=== PATIENT | female | born 1940 | race Caucasian/White ===

== ENCOUNTER 2018-01-09 10:10 | Inpatient (IN) | payer OTHER, BC ==
[~2018-01-09] VITALS: Ht 170.2 cm; Wt 70.8 kg
[2018-01-09 10:15] VITALS: BP 104/45
[2018-01-09] MEDS ORDERED: ACET-2619 PO (11:30)
[2018-01-09] MEDS ORDERED: [UNRECOGNIZED DRUG - CODE] RC (11:49)
[2018-01-09] MEDS ORDERED: LISI30TA6 PO (11:49)
[2018-01-09] MEDS ORDERED: FERR-252 PO (11:49)
[2018-01-09] MEDS ORDERED: VITB12I IM (11:49)
[2018-01-09] MEDS ORDERED: ASPI81CT89 PO (11:49)
[2018-01-09] MEDS ORDERED: GLIP5TAB4 PO (11:49)
[2018-01-09] MEDS ORDERED: VITA1TAB44 PO (11:49)
[2018-01-09] MEDS ORDERED: PANT40EC PO (11:49)
[2018-01-09] MEDS ORDERED: FENO145T PO (11:49)
[2018-01-09] MEDS ORDERED: VITD1000 PO (11:49)
[2018-01-09] MEDS ORDERED: LIP80 PO (11:49)
[2018-01-09] MEDS ORDERED: HYDR-5122 PO (11:49)
[2018-01-09] MEDS ORDERED: CLON0.1T42 PO (11:49)
[2018-01-09] MEDS ORDERED: DOCU250S72 PO (11:49)
[2018-01-09] MEDS ORDERED: CARV25TA PO (11:49)
[2018-01-09] MEDS ORDERED: FLEPED RC (11:49)
[2018-01-09] MEDS ORDERED: MAGN400S60 PO (11:49)
[2018-01-09 12:02] LABS: BASOPHILS % (AUTO) 0.3 % (0.0-2.0); EOSINOPHILS # (AUTO) 0.2 K/uL (0-0.4); HEMATOCRIT 21.3 % (36-48); LYMPHOCYTES # (AUTO) 0.6 K/uL (2.5-16.5); LYMPHOCYTES % (AUTO) 5.9 % (20.5-51.1); MEAN CORPUSCULAR HEMOGLOBIN 31 pg (27-31); MEAN CORPUSCULAR HGB CONC 32 g/dL (33-37); MEAN CORPUSCULAR VOLUME 97.7 fL (80-94); MONOCYTES # (AUTO) 0.7 K/uL (0.8-1.0); MONOCYTES % (AUTO) 6.8 % (1.7-9.3); NEUTROPHILS # (AUTO) 8.5 K/uL (1.8-7.7); PLATELET COUNT (AUTO) 354 K/uL (140-450); RED BLOOD CELL COUNT(AUTO) 2.18 MIL/uL (4.20-5.40); RED CELL DISTRIBUTION WIDTH 14.7 % (11.6-13.7)
[2018-01-09 12:21] LABS: ALBUMIN 1.9 g/dL (3.4-5.0); ANION GAP 16.4 (8-16); ASPARTATE AMINOTRANSFERASE 21 U/L (15-37); CARBON DIOXIDE 19.7 mmol/L (21-32); CHLORIDE 109 mmol/L (98-107); CREATININE 2.3 mg/dL (0.6-1.3); GLUCOSE 197 mg/dL (74-106); POTASSIUM 5.1 mmol/L (3.5-5.1); SODIUM SERUM 140 mmol/L (136-145); TOTAL BILIRUBIN 0.2 mg/dL (0.0-1.0)
[2018-01-09 12:27] LABS: HEMOGLOBIN 6.8 g/dL (12.0-16.0)
[2018-01-09 12:29] LABS: UREA NITROGEN, BLOOD 85 mg/dL (7-18)
[2018-01-09 12:34] LABS: PROTHROMBIN TIME 10.7 secs (10.8-13.4)
[2018-01-09] MEDS: NACL 0.9% 1,000 ML IV SCH (13:07)
[2018-01-09] MEDS ORDERED: ACETAMINOPHEN 325 MG TAB PO PRN (13:10)
[2018-01-09] MEDS ORDERED: ONDANSETRON 4 MG/2 ML VIAL IM/IVP PRN (13:10)
[2018-01-09] MEDS ORDERED: DOCUSATE SODIUM 100 MG GELCAP PO PRN (13:10)
[2018-01-09] MEDS ORDERED: HYDROcodone/APAP 7.5/325 MG 1 TAB PO PRN (13:10)
[2018-01-09 13:40] LABS: APPEARANCE,URINE SLIGHTLY HAZY (CLEAR); BILIRUBIN,URINE NEGATIVE (NEGATIVE); BLOOD, URINE NEGATIVE (NEGATIVE); COLOR,URINE YELLOW (YELLOW); LEUKOCYTE ESTERASE ,URINE SMALL (NEGATIVE); NITRITE, URINE NEGATIVE (NEGATIVE); UGLUCOSE NEGATIVE (NEGATIVE)
[2018-01-09 13:44] LABS: RBC,URINE 0-5 (RARE) /HPF (0-5); WBC,URINE 16-25 (MOD) /HPF (0-5)
[2018-01-09 13:45] LABS: URINE AMORPHOUS URATE 1+ /HPF (None Seen)
[2018-01-09 13:52] LABS: CHOL/HDL RATIO 2.6 (1-4.5); MAGNESIUM 1.7 mg/dL (1.8-2.4); PHOSPHORUS 5.5 mg/dL (2.5-4.9); THYROID STIMULATING HORMONE 0.13 uIU/mL (0.34-3.74)
[2018-01-09 13:55] LABS: BARBITURATE, URINE NEG. ng/ml (NEG <=200); BENZODIAZEPINE, URINE POS. ng/mL (NEG <=200); CANNABINOID, URINE NEG. ng/mL (NEG <=50); COCAINE, URINE NEG. ng/mL (NEG <=300); OPIATE, URINE NEG. ng/mL (NEG <=2000); PHENCYCLIDINE SCREEN,URINE NEG. ng/mL (NEG <=25)
[2018-01-09 14:10] VITALS: BP 126/39
[2018-01-09] MEDS ORDERED: INSULIN LISPRO SLIDING SCALE 100 UNITS/ML VIAL SUBQ PRN (15:00)
[2018-01-09] MEDS ORDERED: SODIUM PHOSPHATE 118 ML ENEM RC PRN (15:00)
[2018-01-09] MEDS ORDERED: cloNIDine 0.1 MG TAB PO PRN (15:00)
[2018-01-09] MEDS ORDERED: BISACODYL 5 MG RC SCH (15:00)
[2018-01-09] MEDS ORDERED: DEXTROSE 50% 50 ML SYR IVP PRN (15:00)
[2018-01-09] MEDS ORDERED: MAGNESIUM HYDROXIDE 2400 MG/30 ML UDC PO PRN (15:00)
[2018-01-09] MEDS ORDERED: BISACODYL 10 MG SUPP RC PRN (15:20)
[2018-01-09] MEDS ORDERED: BISACODYL 5 MG TABEC PO PRN (15:20)
[2018-01-09 16:00] VITALS: BP 116/38
[2018-01-09] MEDS ORDERED: FUROSEMIDE 20 MG TAB PO SCH (16:00)
[2018-01-09] MEDS ORDERED: ACETAMINOPHEN 325 MG TAB PO SCH (16:00)
[2018-01-09] MEDS: BLOOD GLUCOSE MONITORING 1 DEV DEV FS SCH ×2 (16:55→21:42)
[2018-01-09 19:11] LABS: BASOPHILS % (AUTO) 0.5 % (0.0-2.0); EOSINOPHILS # (AUTO) 0.2 K/uL (0-0.4); EOSINOPHILS % (AUTO) 2.8 % (0.0-4.0); HEMATOCRIT 22.5 % (36-48); HEMOGLOBIN 7.3 g/dL (12.0-16.0); LYMPHOCYTES # (AUTO) 0.7 K/uL (2.5-16.5); LYMPHOCYTES % (AUTO) 8.3 % (20.5-51.1); MEAN CORPUSCULAR HEMOGLOBIN 31 pg (27-31); MEAN CORPUSCULAR HGB CONC 33 g/dL (33-37); MEAN CORPUSCULAR VOLUME 93.9 fL (80-94); MONOCYTES # (AUTO) 0.7 K/uL (0.8-1.0); MONOCYTES % (AUTO) 8.3 % (1.7-9.3); NEUTROPHILS # (AUTO) 6.7 K/uL (1.8-7.7); NEUTROPHILS % (AUTO) 80.1 % (42.2-75.2); PLATELET COUNT (AUTO) 298 K/uL (140-450); RED CELL DISTRIBUTION WIDTH 16.1 % (11.6-13.7); WHITE BLOOD COUNT (AUTO) 8.4 K/uL (4.8-10.8)
[2018-01-09 20:00] VITALS: BP 137/50
[2018-01-09] MEDS: ATORVASTATIN 80 MG TAB PO SCH (21:46)
[2018-01-09] MEDS: CARVEDILOL 12.5 MG TAB PO SCH (21:47)
[2018-01-10] VITALS (7 sets, daily range): BP systolic 123–164; BP diastolic 40–67
[2018-01-10] MEDS: PANTOPRAZOLE 40 MG TABEC PO SCH (05:59)
[2018-01-10] MEDS: NACL 0.9% 1,000 ML IV SCH ×3 (05:59→20:17)
[2018-01-10] MEDS: BLOOD GLUCOSE MONITORING 1 DEV DEV FS SCH ×4 (06:03→20:17)
[2018-01-10 06:06] LABS: BASOPHILS % (AUTO) 0.4 % (0.0-2.0); EOSINOPHILS # (AUTO) 0.2 K/uL (0-0.4); EOSINOPHILS % (AUTO) 2.8 % (0.0-4.0); HEMATOCRIT 22.8 % (36-48); HEMOGLOBIN 7.5 g/dL (12.0-16.0); LYMPHOCYTES # (AUTO) 0.5 K/uL (2.5-16.5); LYMPHOCYTES % (AUTO) 6.2 % (20.5-51.1); MEAN CORPUSCULAR HEMOGLOBIN 31 pg (27-31); MEAN CORPUSCULAR HGB CONC 33 g/dL (33-37); MEAN CORPUSCULAR VOLUME 93.9 fL (80-94); MONOCYTES # (AUTO) 0.6 K/uL (0.8-1.0); MONOCYTES % (AUTO) 6.8 % (1.7-9.3); NEUTROPHILS # (AUTO) 6.9 K/uL (1.8-7.7); NEUTROPHILS % (AUTO) 83.8 % (42.2-75.2); PLATELET COUNT (AUTO) 296 K/uL (140-450); RED BLOOD CELL COUNT(AUTO) 2.43 MIL/uL (4.20-5.40); RED CELL DISTRIBUTION WIDTH 16.1 % (11.6-13.7); WHITE BLOOD COUNT (AUTO) 8.3 K/uL (4.8-10.8)
[2018-01-10 06:29] LABS: MAGNESIUM 1.5 mg/dL (1.8-2.4); PHOSPHORUS 4.9 mg/dL (2.5-4.9)
[2018-01-10 06:31] LABS: CHOL/HDL RATIO 2.5 (1-4.5)
[2018-01-10] MEDS ORDERED: INFLUENZA VIRUS VACCINE QUAD 0.5 ML SYR IMVAC PRN (06:50)
[2018-01-10] MEDS ORDERED: PNEUMOCOCCAL VACCINE 23 MCG/0.5 ML VIAL IMVAC SCH (06:50)
[2018-01-10] MEDS ORDERED: PANTOPRAZOLE 40 MG TABEC PO SCH (09:00)
[2018-01-10] MEDS: CHOLECALCIFEROL 1,000 IU TAB PO SCH (09:00)
[2018-01-10] MEDS ORDERED: FENOFIBRATE 134 MG PO SCH (09:00)
[2018-01-10] MEDS: ASPIRIN 81 MG TAB.CHEW PO SCH (09:24)
[2018-01-10] MEDS: glipiZIDE 5 MG TAB PO SCH (09:25)
[2018-01-10] MEDS: VIT-B COMP/VIT-C/FOLIC ACID 1 TAB PO SCH (09:25)
[2018-01-10] MEDS: DOCUSATE SODIUM 250 MG GELCAP PO SCH (09:26)
[2018-01-10] MEDS: CARVEDILOL 12.5 MG TAB PO SCH ×2 (09:26→20:27)
[2018-01-10] MEDS: FERROUS SULFATE 325 MG TABEC PO SCH (09:28)
[2018-01-10] MEDS: FENOFIBRATE 48 MG TAB PO SCH (09:29)
[2018-01-10] MEDS: LACTOBACILLUS RHAMNOSUS GG 1 EACH CAP PO SCH (09:32)
[2018-01-10] MEDS ORDERED: MAG SULF 2000 MG/WATER PREMIX 50 ML IV SCH (11:00)
[2018-01-10 11:19] LABS: ANION GAP 15.3 (8-16); CARBON DIOXIDE 19.5 mmol/L (21-32); CHLORIDE 113 mmol/L (98-107); CREATININE 1.9 mg/dL (0.6-1.3); GLUCOSE 117 mg/dL (74-106); POTASSIUM 4.8 mmol/L (3.5-5.1); SODIUM SERUM 143 mmol/L (136-145)
[2018-01-10 11:23] LABS: UREA NITROGEN, BLOOD 73 mg/dL (7-18)
[2018-01-10] MEDS: ATORVASTATIN 80 MG TAB PO SCH (20:27)
[2018-01-11 03:50] VITALS: BP 147/65
[2018-01-11] MEDS: NACL 0.9% 1,000 ML IV SCH ×2 (05:07→06:59)
[2018-01-11] MEDS: PANTOPRAZOLE 40 MG TABEC PO SCH (05:46)
[2018-01-11] MEDS: BLOOD GLUCOSE MONITORING 1 DEV DEV FS SCH ×4 (06:07→20:05)
[2018-01-11 06:32] LABS: BASOPHILS % (AUTO) 0.3 % (0.0-2.0); EOSINOPHILS # (AUTO) 0.3 K/uL (0-0.4); HEMATOCRIT 22.8 % (36-48); HEMOGLOBIN 7.4 g/dL (12.0-16.0); LYMPHOCYTES # (AUTO) 0.7 K/uL (2.5-16.5); MEAN CORPUSCULAR HEMOGLOBIN 31 pg (27-31); MEAN CORPUSCULAR HGB CONC 33 g/dL (33-37); MEAN CORPUSCULAR VOLUME 93.7 fL (80-94); MONOCYTES # (AUTO) 0.6 K/uL (0.8-1.0); MONOCYTES % (AUTO) 7.5 % (1.7-9.3); NEUTROPHILS # (AUTO) 6.9 K/uL (1.8-7.7); NEUTROPHILS % (AUTO) 81.2 % (42.2-75.2); PLATELET COUNT (AUTO) 312 K/uL (140-450); RED BLOOD CELL COUNT(AUTO) 2.43 MIL/uL (4.20-5.40); RED CELL DISTRIBUTION WIDTH 15.6 % (11.6-13.7); WHITE BLOOD COUNT (AUTO) 8.5 K/uL (4.8-10.8)
[2018-01-11 06:51] LABS: AMYLASE 96 U/L (25-115); ANION GAP 15.3 (8-16); CARBON DIOXIDE 19.5 mmol/L (21-32); CHLORIDE 113 mmol/L (98-107); CREATININE 1.7 mg/dL (0.6-1.3); GLUCOSE 88 mg/dL (74-106); LIPASE 464 U/L (73-393); POTASSIUM 4.8 mmol/L (3.5-5.1); SODIUM SERUM 143 mmol/L (136-145); UREA NITROGEN, BLOOD 51 mg/dL (7-18)
[2018-01-11 06:56] LABS: MAGNESIUM 2.1 mg/dL (1.8-2.4); PHOSPHORUS 4.1 mg/dL (2.5-4.9)
[2018-01-11 08:00] VITALS: BP 144/52
[2018-01-11] MEDS: ASPIRIN 81 MG TAB.CHEW PO SCH (09:00)
[2018-01-11] MEDS: DOCUSATE SODIUM 250 MG GELCAP PO SCH (09:00)
[2018-01-11] MEDS: VIT-B COMP/VIT-C/FOLIC ACID 1 TAB PO SCH (09:00)
[2018-01-11] MEDS: CHOLECALCIFEROL 1,000 IU TAB PO SCH (09:00)
[2018-01-11] MEDS: FERROUS SULFATE 325 MG TABEC PO SCH (09:00)
[2018-01-11] MEDS: LISINOPRIL 20 MG TAB PO SCH (10:06)
[2018-01-11] MEDS: CARVEDILOL 12.5 MG TAB PO SCH ×2 (10:06→20:08)
[2018-01-11] MEDS: LACTOBACILLUS RHAMNOSUS GG 1 EACH CAP PO SCH (10:06)
[2018-01-11] MEDS: glipiZIDE 5 MG TAB PO SCH (10:07)
[2018-01-11] MEDS: FENOFIBRATE 48 MG TAB PO SCH (10:07)
[2018-01-11 12:00] VITALS: BP 128/51
[2018-01-11 12:03] LABS: FERRITIN 581 ng/mL (15 - 150)
[2018-01-11 12:03] LABS: T4 (THYROXINE) 6.4 ug/dL (4.5 - 12.0)
[2018-01-11 12:04] LABS: TRANSFERRIN 157 mg/dL (200 - 370)
[2018-01-11 16:00] VITALS: BP 133/55
[2018-01-11 20:00] VITALS: BP 165/66
[2018-01-11] MEDS: ATORVASTATIN 80 MG TAB PO SCH (20:08)
[2018-01-11] MEDS ORDERED: ZOLPIDEM 5 MG TAB PO SCH (22:45)
[2018-01-12] VITALS: BP 136/54
[2018-01-12 04:00] VITALS: BP 147/50
[2018-01-12] MEDS: NACL 0.9% 1,000 ML IV SCH (04:03)
[2018-01-12] MEDS: BLOOD GLUCOSE MONITORING 1 DEV DEV FS SCH ×2 (06:48→12:22)
[2018-01-12] MEDS: PANTOPRAZOLE 40 MG TABEC PO SCH (06:52)
[2018-01-12 07:34] LABS: ANION GAP 13.6 (8-16); CARBON DIOXIDE 20.8 mmol/L (21-32); CHLORIDE 114 mmol/L (98-107); CREATININE 1.5 mg/dL (0.6-1.3); GLUCOSE 83 mg/dL (74-106); POTASSIUM 4.4 mmol/L (3.5-5.1); SODIUM SERUM 144 mmol/L (136-145); UREA NITROGEN, BLOOD 36 mg/dL (7-18)
[2018-01-12 07:38] LABS: BASOPHILS % (AUTO) 0.5 % (0.0-2.0); EOSINOPHILS # (AUTO) 0.3 K/uL (0-0.4); EOSINOPHILS % (AUTO) 4.2 % (0.0-4.0); HEMATOCRIT 23.3 % (36-48); HEMOGLOBIN 7.4 g/dL (12.0-16.0); LYMPHOCYTES # (AUTO) 0.6 K/uL (2.5-16.5); LYMPHOCYTES % (AUTO) 9.7 % (20.5-51.1); MEAN CORPUSCULAR HEMOGLOBIN 31 pg (27-31); MEAN CORPUSCULAR HGB CONC 32 g/dL (33-37); MEAN CORPUSCULAR VOLUME 95.7 fL (80-94); MONOCYTES # (AUTO) 0.4 K/uL (0.8-1.0); MONOCYTES % (AUTO) 6.1 % (1.7-9.3); NEUTROPHILS # (AUTO) 5.2 K/uL (1.8-7.7); NEUTROPHILS % (AUTO) 79.5 % (42.2-75.2); PLATELET COUNT (AUTO) 283 K/uL (140-450); RED BLOOD CELL COUNT(AUTO) 2.44 MIL/uL (4.20-5.40); RED CELL DISTRIBUTION WIDTH 15.4 % (11.6-13.7); WHITE BLOOD COUNT (AUTO) 6.6 K/uL (4.8-10.8)
[2018-01-12 07:42] LABS: MAGNESIUM 1.8 mg/dL (1.8-2.4); PHOSPHORUS 2.8 mg/dL (2.5-4.9)
[2018-01-12 08:00] VITALS: BP 156/67
[2018-01-12] MEDS: LACTOBACILLUS RHAMNOSUS GG 1 EACH CAP PO SCH (09:00)
[2018-01-12] MEDS: DOCUSATE SODIUM 250 MG GELCAP PO SCH (09:00)
[2018-01-12] MEDS: CHOLECALCIFEROL 1,000 IU TAB PO SCH (09:00)
[2018-01-12] MEDS: VIT-B COMP/VIT-C/FOLIC ACID 1 TAB PO SCH (09:00)
[2018-01-12] MEDS: FENOFIBRATE 48 MG TAB PO SCH (09:00)
[2018-01-12] MEDS: glipiZIDE 5 MG TAB PO SCH (09:45)
[2018-01-12] MEDS: CARVEDILOL 12.5 MG TAB PO SCH (09:45)
[2018-01-12] MEDS: LISINOPRIL 20 MG TAB PO SCH (09:45)
[2018-01-12] MEDS: ASPIRIN 81 MG TAB.CHEW PO SCH (09:46)
[2018-01-12] MEDS: FERROUS SULFATE 325 MG TABEC PO SCH (09:46)
[2018-01-12 12:00] VITALS: BP 139/61
[2018-01-12] MEDS ORDERED: FAMO-90 PO (13:37)
[2018-01-12] MEDS ORDERED: CEFT1SOL1 IV (13:38)
[2018-01-12] MEDS ORDERED: LACT10CA1 PO (13:38)
[2018-01-12] MEDS ORDERED: GLUC-805 MC (13:38)
== END 2018-01-12 15:20 | DRG 73 ==
LOC: MED 10:10 → MTU 13:07
PROVIDERS: ADMIT General Practice; ATTEND General Practice
PROC: 30233N1 Transfusion of Nonautologous Red Blood Cells into Peripheral Vein, Percutaneous Approach (ICD-10-PCS; principal; 2018-01-09)
PROC: 3E02340 Introduction of Influenza Vaccine into Muscle, Percutaneous Approach (ICD-10-PCS; 2018-01-10)
PROC: 3E0234Z Introduction of Serum, Toxoid and Vaccine into Muscle, Percutaneous Approach (ICD-10-PCS; 2018-01-10)
DX: G90.9 Disorder of the autonomic nervous system, unspecified (principal); K85.30 Drug induced acute pancreatitis without necrosis or infection; N17.0 Acute kidney failure with tubular necrosis; E43 Unspecified severe protein-calorie malnutrition; I82.411 Acute embolism and thrombosis of right femoral vein; N39.0 Urinary tract infection, site not specified; I42.9 Cardiomyopathy, unspecified; I69.354 Hemiplegia and hemiparesis following cerebral infarction affecting left non-dominant side; I82.811 Embolism and thrombosis of superficial veins of right lower extremity; D64.9 Anemia, unspecified; E11.65 Type 2 diabetes mellitus with hyperglycemia; E83.39 Other disorders of phosphorus metabolism; E83.42 Hypomagnesemia; E87.8 Other disorders of electrolyte and fluid balance, not elsewhere classified; E78.5 Hyperlipidemia, unspecified; G89.4 Chronic pain syndrome; M79.7 Fibromyalgia; K21.9 Gastro-esophageal reflux disease without esophagitis; N18.9 Chronic kidney disease, unspecified; E11.22 Type 2 diabetes mellitus with diabetic chronic kidney disease; I12.9 Hypertensive chronic kidney disease with stage 1 through stage 4 chronic kidney disease, or unspecified chronic kidney disease; G47.00 Insomnia, unspecified; T50.905A Adverse effect of unspecified drugs, medicaments and biological substances, initial encounter; E86.0 Dehydration; Z68.24 Body mass index [BMI] 24.0-24.9, adult; Z88.2 Allergy status to sulfonamides; Z79.82 Long term (current) use of aspirin; Z79.899 Other long term (current) drug therapy; Z85.828 Personal history of other malignant neoplasm of skin; Y92.89 Other specified places as the place of occurrence of the external cause; Z79.84 Long term (current) use of oral hypoglycemic drugs; Z23 Encounter for immunization
CPT/HCPCS: 36415; 70450; 71045; 80048; 80053; 80305; 81001; 82150; 82272; 82607; 82728; 82746; 82948; 83036; 83540; 83690; 83735; 83880; 84100; 84436; 84443; 84484; 85025; 85045; 85610; 85730; 86886; 86900; 86901; 86920; 87081; 87086; 87186; 93005; 93880; 93925; 93970; 97110; 97530; 99285; C1758; J0696; J1815; J3475; J7030; J7060; P9016; Q0092; Q0163

== ENCOUNTER 2018-10-01 21:05 | Inpatient (IN) | payer OTHER, BC ==
[~2018-10-01] VITALS: Ht 170.2 cm; Wt 65.8 kg
[~2018-10-01 21:05] MED LIST: ACET-2619 PO; ASPI-1718 PO; CARV25TA PO; CEFT1SOL1 IV; CLON0.1T42 PO; DOCU250S72 PO; FAMO-90 PO; FENO145T PO; FERR-252 PO; FLEPED RC; GLIP5TAB4 PO; GLUC-805 MC; HYDR-5122 PO; LACT10CA1 PO; LIP80 PO; LISI30TA6 PO; MAGN400S60 PO; VITA1TAB44 PO; VITB12I IM; VITD1000 PO; [UNRECOGNIZED DRUG - CODE] RC
--- NOTE | 2018-10-01 21:05 | NUR ---
Patient [facility], transferred to bed 1. RN evaluating patient at bedside.
--- NOTE | 2018-10-01 21:15 | NUR ---
PT BIBA C/O OF N/V THE LAST COUPLE DAYS. PER PT SHE ALSO HAS GENERALIZED WEAKNESS. EMT GAVE ZOFRAN IV. PT HAS 20 GAUGE IN LEFT AC. BLOOD SUGAR 88. MED HX: STROKE AND HTN. VSS. SATING AT 91-94% PT REFUSING OXYGEN. SAFETY MEASURES IN PLACE. WAITING FOR ERMD TO EVALUATE PT.
[2018-10-01] MEDS ORDERED: NACL 0.9% 1,000 ML IV ONE (21:35)
[2018-10-01 22:05] LABS: HEMATOCRIT 29.1 % (36-48); HEMOGLOBIN 9.7 g/dL (12.0-16.0); MEAN CORPUSCULAR HEMOGLOBIN 32 pg (27-31); MEAN CORPUSCULAR HGB CONC 33 g/dL (33-37); MEAN CORPUSCULAR VOLUME 95.2 fL (80-94); PLATELET COUNT (AUTO) 174 K/uL (140-450); RED BLOOD CELL COUNT(AUTO) 3.06 MIL/uL (4.20-5.40); RED CELL DISTRIBUTION WIDTH 13.4 % (11.6-13.7); WHITE BLOOD COUNT (AUTO) 12.8 K/uL (4.8-10.8)
--- NOTE | 2018-10-01 22:08 | NUR ---
pt going to ct
[2018-10-01 22:25] LABS: ANION GAP 15.3 (8-16); CARBON DIOXIDE 22.4 mmol/L (21-32); CHLORIDE 107 mmol/L (98-107); CREATININE 2.2 mg/dL (0.6-1.3); GLUCOSE 110 mg/dL (74-106); POTASSIUM 4.7 mmol/L (3.5-5.1); SODIUM SERUM 140 mmol/L (136-145); UREA NITROGEN, BLOOD 38 mg/dL (7-18)
--- NOTE | 2018-10-01 22:28 | NUR ---
pt back from ct
[2018-10-01 22:32] LABS: ALBUMIN 2.9 g/dL (3.4-5.0); ASPARTATE AMINOTRANSFERASE 19 U/L (15-37); TOTAL BILIRUBIN 0.5 mg/dL (0.0-1.0)
[2018-10-01 22:33] LABS: EOSINOPHILS % (MANUAL) 1 % (0-4); LYMPHOCYTES % (MANUAL) 5 % (20-46); MONOCYTES % (MANUAL) 1 % (5-12)
[2018-10-01] MEDS ORDERED: LACTULOSE 20 GM/30 ML UDC PO ONE (22:40)
[2018-10-01] MEDS ORDERED: NACL 0.9% 500 ML IV ONE (22:40)
--- NOTE | 2018-10-01 22:40 | NUR ---
PT REFUSED LACTUOSE. ERMD MADE AWARE.
[2018-10-01] MEDS ORDERED: PIPERACILLIN/TAZOBACTAM 3.375 GM in DEXTROSE 5% 50 ML IV ONE (22:50)
[2018-10-01 22:54] LABS: APPEARANCE,URINE CLEAR (CLEAR); BILIRUBIN,URINE NEGATIVE (NEGATIVE); BLOOD, URINE NEGATIVE (NEGATIVE); COLOR,URINE YELLOW (YELLOW); LEUKOCYTE ESTERASE ,URINE NEGATIVE (NEGATIVE); NITRITE, URINE NEGATIVE (NEGATIVE); UGLUCOSE NEGATIVE (NEGATIVE)
[2018-10-01] MEDS ORDERED: DOCUSATE SODIUM 100 MG GELCAP PO PRN (23:10)
[2018-10-01] MEDS ORDERED: FAMOTIDINE 20 MG/2 ML VIAL IV PRN (23:10)
[2018-10-01] MEDS ORDERED: PIPERACILLIN/TAZOBACTAM 3.375 GM VIAL IV ONE (23:10)
[2018-10-01] MEDS ORDERED: ACETAMINOPHEN 325 MG TAB PO PRN (23:10)
[2018-10-01] MEDS ORDERED: ONDANSETRON 4 MG/2 ML VIAL IM/IVP PRN (23:10)
[2018-10-01 23:37] LABS: PROTHROMBIN TIME 10.6 secs (10.8-13.4)
[2018-10-01 23:41] VITALS: BP 186/76
[2018-10-01 23:52] LABS: FREE T4 (FREE THYROXINE) 1.12 ng/dL (0.76-1.46); MAGNESIUM 1.7 mg/dL (1.8-2.4); PHOSPHORUS 5.1 mg/dL (2.5-4.9); THYROID STIMULATING HORMONE 0.34 uIU/mL (0.34-3.74)
--- NOTE | 2018-10-02 00:15 | NUR ---
Patient will be admitted to TELEMETRY Will go to room 128B. Belongings list completed. Report to RUBIO HAMILTON.
--- NOTE | 2018-10-02 00:15 | NUR ---
[facility] ORIENTED X 4. PT GENERALIZED WEAKNESS W/ ATAXIA SECONDARY TO STROKE, DAUGHTER HERE AT BEDSIDE. POC DISCUSSED AND PLACED ON BED COMFORTABLY, IN LOW BED, ON FALL RISK PRECAUTION.
--- NOTE | 2018-10-02 00:22 | NUR ---
Transfer of care AND report given to RUBIO HAMILTON
[2018-10-02] MEDS: NACL 0.9% 1,000 ML IV SCH ×4 (01:37→22:31)
[2018-10-02] MEDS ORDERED: TRAZ-466 PO (01:47)
--- NOTE | 2018-10-02 02:00 | NUR ---
PT CLEANED AND TURNED TO SIDE,PLACED COMFORTABLY IN BED
--- NOTE | 2018-10-02 02:05 | NUR ---
REMINDED DR. MOORE ON PT'S REQUEST FOR SLEEPING AID. WILL PUT IT IN.
[2018-10-02] MEDS ORDERED: LORA10TA19 PO (02:07)
[2018-10-02] MEDS ORDERED: NAPR-54 PO (02:08)
[2018-10-02] MEDS ORDERED: TAMS0.4C96 PO (02:10)
[2018-10-02] MEDS ORDERED: ALUM355S50 PO (02:11)
[2018-10-02] MEDS ORDERED: ALUMINUM HYD/MAG/SIMETHICONE 30 ML UDC PO SCH ×2 (02:15→18:06)
[2018-10-02] MEDS ORDERED: BISACODYL 5 MG TABEC PO PRN (02:15)
[2018-10-02] MEDS ORDERED: SODIUM PHOSPHATE PEDIATRIC 67.5 ML ENEM RC PRN (02:15)
[2018-10-02] MEDS ORDERED: MAGNESIUM HYDROXIDE 2400 MG/30 ML UDC PO PRN (02:15)
[2018-10-02] MEDS ORDERED: ALBUTEROL SULFATE/IPRATROPIU 3 ML SOL IH PRN (03:30)
[2018-10-02] MEDS ORDERED: MEDICATION REC. PHARMACY CONS. 1 EA MISC MC PRN (03:45)
[2018-10-02] MEDS ORDERED: MAG SULF 2000 MG/WATER PREMIX 50 ML IV ONE (03:55)
[2018-10-02 06:00] VITALS: BP 114/40
[2018-10-02 06:06] LABS: BASOPHILS % (AUTO) 0.2 % (0.0-2.0); EOSINOPHILS % (AUTO) 0.2 % (0.0-4.0); HEMATOCRIT 27.2 % (36-48); HEMOGLOBIN 9.2 g/dL (12.0-16.0); LYMPHOCYTES # (AUTO) 0.7 K/uL (2.5-16.5); LYMPHOCYTES % (AUTO) 6.9 % (20.5-51.1); MEAN CORPUSCULAR HEMOGLOBIN 32 pg (27-31); MEAN CORPUSCULAR HGB CONC 34 g/dL (33-37); MEAN CORPUSCULAR VOLUME 94.7 fL (80-94); MONOCYTES # (AUTO) 0.7 K/uL (0.8-1.0); MONOCYTES % (AUTO) 6.9 % (1.7-9.3); NEUTROPHILS # (AUTO) 9.4 K/uL (1.8-7.7); NEUTROPHILS % (AUTO) 85.8 % (42.2-75.2); PLATELET COUNT (AUTO) 175 K/uL (140-450); RED BLOOD CELL COUNT(AUTO) 2.87 MIL/uL (4.20-5.40); RED CELL DISTRIBUTION WIDTH 13.1 % (11.6-13.7); WHITE BLOOD COUNT (AUTO) 10.9 K/uL (4.8-10.8)
--- NOTE | 2018-10-02 06:08 | NUR ---
PT LEFT ON BED COMFORTABLY, AWAKE, ALERT ORIENTED X 4. PT WANTS TO BE CHANGED REGULARLY. WILL START ON THE ZOSYN LATER. PT IN STABLE CONDITION
[2018-10-02] MEDS ORDERED: PIPERACILLIN/TAZOBACTAM 2.25 GM VIAL IV ONE ×2 (06:52)
[2018-10-02 07:02] LABS: ANION GAP 14.3 (8-16); CARBON DIOXIDE 23.5 mmol/L (21-32); CHLORIDE 109 mmol/L (98-107); CREATININE 2.1 mg/dL (0.6-1.3); GLUCOSE 102 mg/dL (74-106); POTASSIUM 4.8 mmol/L (3.5-5.1); SODIUM SERUM 142 mmol/L (136-145); UREA NITROGEN, BLOOD 36 mg/dL (7-18)
[2018-10-02] MEDS: PIPERACILLIN/TAZOBACTAM 2.25 GM in DEXTROSE 5% 50 ML IV SCH ×3 (07:04→22:36)
[2018-10-02] MEDS: ALBUTEROL SULFATE/IPRATROPIU 3 ML SOL IH SCH ×3 (07:09→20:52)
--- NOTE | 2018-10-02 07:25 | NUR ---
RECEIVED REPORT FROM SCIENTIFIC SOFTWARE DEVELOPER RN. PATIENT SLEEPING, VISIBLE CHEST RISE, NO SIGNS OF DISTRESS ON RA, SAFETY PRECAUTIONS IN PLACE. IV INFUSING WELL AT 100ML/HR. CALL LIGHT IN REACH. WILL CONTINUE TO MONITOR.
[2018-10-02 08:00] VITALS: BP 160/48
--- NOTE | 2018-10-02 08:30 | NUR ---
CLEANED AND REPOSITIONED PATIENT, PATIENT IS ABLE TO MAKE HER NEEDS KNOWN AND VERBALIZED UNDERSTANDING OF CALL LIGHT USE. SAFETY PRECAUTIONS IN PLACE WILL CONTINUE TO MONITOR.
[2018-10-02] MEDS: LACTOBACILLUS RHAMNOSUS GG 1 EACH CAP PO SCH (09:00)
[2018-10-02] MEDS ORDERED: CHOLECALCIFEROL 1,000 IU TAB PO SCH (09:00)
[2018-10-02] MEDS ORDERED: LISINOPRIL 10 MG TAB PO SCH (09:00)
[2018-10-02] MEDS: amLODIPine 5 MG TAB PO SCH ×2 (09:00→12:11)
[2018-10-02] MEDS ORDERED: LACTOBACILLUS RHAMNOSUS GG 1 EACH CAP PO SCH (09:00)
[2018-10-02] MEDS: TAMSULOSIN 0.4 MG CAP PO SCH (09:00)
--- NOTE | 2018-10-02 09:56 | NUR ---
PATIENT HAS BEEN SCREENED AND CATEGORIZED HIGH NUTRITION RISK. PATIENT WILL BE SEEN WITHIN 1-2 DAYS OF ADMISSION. 10/02/18-10/03/[address]
[2018-10-02] MEDS: ASPIRIN 81 MG TAB.CHEW PO SCH (10:00)
[2018-10-02] MEDS: LORATADINE 10 MG TAB PO SCH (10:00)
[2018-10-02] MEDS: POLYETHYLENE GLYCOL 17 GM/PKT PO SCH (10:01)
[2018-10-02] MEDS: CARVEDILOL 12.5 MG TAB PO SCH ×2 (10:01→21:06)
--- NOTE | 2018-10-02 10:14 | NUR ---
ADMINISTERED SCHEDULED MEDICATIONS, PATIENT TOLERATED WELL BUT REFUSED NORVASC AND FLOMAX. PATIENT IS ONLY DRINKING PART OF THE MIRALAX. SAFETY PRECAUTIONS IN PLACE, CALL LIGHT IN REACH. IV INFUSING WELL TO LEFT AC 20 GAUGE.
[2018-10-02] MEDS ORDERED: MAGNESIUM CITRATE 300 ML BTL PO SCH (11:30)
--- NOTE | 2018-10-02 11:40 | NUR ---
HX: CVA STROKE LOC AWAKE AND ALERT VERBALLY RESPONSIVE TO PLANT OPERATOR/SHIFT SUPERVISOR VERBAL COMMANDS TOLERATED INCENTIVE SPIROMETRY THERAPY WELL WITHOUT INCIDENT PREDICATED: 2200ml ENCOURAGED PATIENT WITH ACKNOWLEDGEMENT TO USE INCENTIVE SPIROMETRY EVERY 1-2 HOURS WHILE AWAKE
[2018-10-02 12:00] VITALS: BP 174/54
[2018-10-02 12:07] LABS: MAGNESIUM 1.7 mg/dL (1.8-2.4); PHOSPHORUS 5.4 mg/dL (2.5-4.9)
--- NOTE | 2018-10-02 12:11 | NUR ---
PATIENT BP IS ELEVATED 174/54. EDUCATED PATIENT ON NEED TO TAKE NORVASC WHICH SHE PREVIOUSLY REFUSED. PATIENT AGREED TO TAKE THE MEDICATIONS. WILL RECHECK BP IN ONE HOUR.
[2018-10-02 13:00] VITALS: BP 143/45
--- NOTE | 2018-10-02 13:00 | NUR ---
PATIENT BP IS REDUCED, CURRENTLY 143/54. WILL CONTINUE TO MONITOR. SAFETY PRECAUTIONS IN PLACE, CALL LIGHT IN REACH.
--- NOTE | 2018-10-02 14:23 | NUR ---
S.T. 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 No overt s/s aspiration observed. Pt is able to self-feed w/ minimal assistance. Recommend: 1) Advance to regular diet with chopped meats only. Thin liquids ok. Straws ok. 2) P.O. meds whole as tolerated. 3) Defer to MD/DO for dietary restrictions 4) Nsg to assist w/ tray set up to promote self-feeding. No further tx indicated at this time as pt is functioning at her reported baseline. DC to nsg care. Endorsed to RUBIO Judd. Time [id number]
--- NOTE | 2018-10-02 14:26 | NUR ---
10/02/18 RD INITIAL ASSESSMENT COMPLETED PLEASE REFER TO NUTRITION ASSESSMENT UNDER CARE ACTIVITY FOR ESTIMATED NUTRITIONAL NEEDS. 1. WHEN PATIENT IS MEDICALLY CLEARED TO ADVANCE TO PO DIET, CONSIDER A REGULAR DIET WITH FOOD TEXTURE RECOMMENDED BY SPEECH THERAPIST 2. RECOMMEND ENSURE BID 3. RD TO FOLLOW-UP 2-3 DAYS, HIGH RISK LILA GONZALES RD
--- NOTE | 2018-10-02 14:45 | NUR ---
PATIENT SITTING UP IN BED, FAMILY AT BEDSIDE. ALL NEEDS MET AT THIS TIME. SAFETY PRECAUTIONS IN PLACE. CALL LIGHT IN REACH. WILL CONTINUE TO MONITOR.
[2018-10-02] MEDS ORDERED: DOCUSATE SODIUM 100 MG GELCAP PO SCH (15:57)
--- NOTE | 2018-10-02 17:29 | NUR ---
ENDORSED PATIENT TO BRASSWIND INSTRUMENT REPAIRER RNKAMARI. PATIENT IN STABLE CONDITION.
--- NOTE | 2018-10-02 17:30 | NUR ---
RECEIVED BEDSIDE REPORT FROM DAY SHIFT NURSE. PATIENT IS AWAKE, ALERT, AND COOPERATIVE. RESPIRATION EVEN UNLABORED ON ROOM AIR. NO DISTRESS NOTED. SKIN IS WARM AND DRY. IV PATENT AND DRY. PLAN OF CARE WAS DISCUSSED. FAMILY AT BEDSIDE. ALL SAFETY MEASURES IN PLACE. BED IS AT LOW POSITION. CALL LIGHT WITHIN REACH AND VERBALIZES ITS USE. WILL CONTINUE TO MONITOR.
--- NOTE | 2018-10-02 17:42 | NUR ---
ADMINSTERED SCHEUDLED MEDICAITONS FOR 1500. PATIENT TOLERATED WELL. PATIENT TOOK COLACE BU HAS BEEN REFUSING ALL LAXATIVES ALL DAY. PATIENT HAS STOOL IMPACTION. EDUCATED PATIENT ON NEED TO PROMOTE BOWEL MOVEMENT. PATIENT AGREED TO TAKE COLACE BU NO LIQUID/DRINK FOR STOOL PROMOTING MEDICATIONS. SAFETY PRECAUTIONS IN PLACE. MED LIGHT IN REACH.
--- NOTE | 2018-10-02 18:00 | NUR ---
INITIAL ASSESSMENT DONE. VITALS WERE TAKEN. PATIENT IN STABLE CONDITION. WILL CONTINUE TO MONITOR.
[2018-10-02 20:00] VITALS: BP 144/57
--- NOTE | 2018-10-02 20:00 | NUR ---
VITALS WERE TAKEN. PATIENT IN STABLE CONDITION. NO DISTRESS NOTED. WILL CONTINUE TO MONITOR.
[2018-10-02] MEDS ORDERED: NAPROXEN 500 MG TAB PO SCH (21:00)
--- NOTE | 2018-10-02 21:00 | NUR ---
ALL SCHEDULED MEDS WERE GIVEN PER ORDER. NO ASE NOTED. WILL CONTINUE TO MONITOR.
--- NOTE | 2018-10-02 21:02 | NUR ---
RECEIVED PATIENT ON ROOM AIR, PULSE OX ST 94%. SCHEDULED BREATHING TREATMENT ADMINISTERED. TOLERATED TX WELL WITHOUT SIDE EFFECTS. PATIENT DEMONSTRATES WEAK COUGH EFFORT. INCENTIVE SPIROMETER PERFORMED WITH FAIR EFFORT. NO ACUTE RESPIRATORY DISTRESS NOTED AT THIS TIME. WILL CONTINUE TO MONITOR.
[2018-10-02] MEDS: traZODone 50 MG TAB PO SCH (21:06)
[2018-10-02] MEDS: ATORVASTATIN 20 MG TAB PO SCH (21:07)
[2018-10-02] MEDS: DOCUSATE SODIUM 100 MG GELCAP PO SCH (21:07)
[2018-10-02] MEDS: ALUMINUM HYD/MAG/SIMETHICONE 30 ML UDC PO SCH (21:07)
--- NOTE | 2018-10-02 22:00 | NUR ---
PATIENT HAD A TOTAL OF 4 BOWEL MOVEMENTS AFTER ADMINISTRATION OF MAALOX. WILL CONTINUE TO MONITOR.
--- NOTE | 2018-10-02 22:30 | NUR ---
PROVIDED PATIENT GOOD PERICARE.
--- NOTE | 2018-10-02 23:00 | NUR ---
PATIENT SLEEPING RESPIRATION EVEN UNLABORED ON ROOM AIR. NO DISTRESS NOTED. WILL CONTINUE TO MONITOR.
[2018-10-03] VITALS: BP 143/57
--- NOTE | 2018-10-03 | NUR ---
VITALS WERE TAKEN. PATIENT IN STABLE CONDITION. NO DISTRESS NOTED. WILL CONTINUE TO MONITOR.
--- NOTE | 2018-10-03 02:00 | NUR ---
CHECKED PATIENT. PATIENT SLEEPING RESPIRATION EVEN UNLABORED ON ROOM AIR. NO DISTRESS NOTED. WILL CONTINUE TO MONITOR.
[2018-10-03 04:00] VITALS: BP 150/60
--- NOTE | 2018-10-03 04:00 | NUR ---
VITALS WERE TAKEN. PATIENT IN STABLE CONDITION. PROVIDED GOOD PERICARE. WILL CONTINUE TO MONITOR.
--- NOTE | 2018-10-03 05:54 | NUR ---
PATIENT REFUSED BLOOD DRAWN. EDUCATED THE RISK AND BENEFITS X2 STILL REFUSED. WILL CONTINUE TO MONITOR.
[2018-10-03] MEDS: PIPERACILLIN/TAZOBACTAM 2.25 GM in DEXTROSE 5% 50 ML IV SCH ×3 (06:03→22:45)
--- NOTE | 2018-10-03 06:49 | NUR ---
PATIENT SLEEPING. ALL DUE MEDS WERE GIVEN. VITALS WERE STABLE. NO DISTRESS NOTED. WILL CONTINUE TO MONITOR.
--- NOTE | 2018-10-03 07:22 | NUR ---
ENDORSED PATIENT TO DAY SHIFT NURSE FOR CONTINUITY OF CARE. PATIENT IN STABLE CONDITION.
--- NOTE | 2018-10-03 07:29 | NUR ---
RECEIVED PT FROM CUSTOMER CARE ASSISTANT NURSE, KAMARI, PT IS AWAKE AND LYING ON THE BED WITH IV LINE ON THE LEFT FA G. 20 WITH D51/2NS INFUSING AT 100ML/HR, SIDE RAILS ARE UP AND CALL LIGHT WITHIN REACH, SAFETY AND FALL PRECAUTION INITIATED. PT DENIES PAIN AND NO SIGN OF DISTRESS NOTED. WILL MONITOR PT.
[2018-10-03 08:00] VITALS: BP 168/57
--- NOTE | 2018-10-03 08:06 | NUR ---
AWAKE AND ALERT NO PULMONARY DISTRESS NOTED GOOD CHEST RISE PATIENT REFUSED HHN THERAPY AND RESPIRATORY DRUG PATIENT STATES THAT SHE WANTS TO BE CHANGED AND CONSUME BREAKFAST WILL ACCEPT THERAPY AT A LATER TIME SHARON/RN AWARE
[2018-10-03] MEDS: POLYETHYLENE GLYCOL 17 GM/PKT PO SCH (08:14)
[2018-10-03] MEDS: CARVEDILOL 12.5 MG TAB PO SCH ×2 (08:15→20:45)
[2018-10-03] MEDS: LORATADINE 10 MG TAB PO SCH (08:16)
[2018-10-03] MEDS: amLODIPine 5 MG TAB PO SCH (08:16)
[2018-10-03] MEDS: ASPIRIN 81 MG TAB.CHEW PO SCH (08:16)
[2018-10-03] MEDS: LACTOBACILLUS RHAMNOSUS GG 1 EACH CAP PO SCH (08:17)
[2018-10-03] MEDS: DOCUSATE SODIUM 100 MG GELCAP PO SCH ×2 (08:18→20:45)
[2018-10-03] MEDS: TAMSULOSIN 0.4 MG CAP PO SCH (08:18)
[2018-10-03] MEDS: ALUMINUM HYD/MAG/SIMETHICONE 30 ML UDC PO SCH ×2 (08:18→20:46)
--- NOTE | 2018-10-03 08:18 | NUR ---
PT IS AWAKE AND ORAL MEDICATIONS WERE GIVEN AND PT TOLERATED IT. PT REFUSED TO TAKE ALL THE MEDICATIONS FOR THE STOOL SOFTENERS MEDI MD INFORMED.
[2018-10-03 08:30] LABS: BASOPHILS % (AUTO) 0.3 % (0.0-2.0); EOSINOPHILS # (AUTO) 0.2 K/uL (0-0.4); EOSINOPHILS % (AUTO) 3.2 % (0.0-4.0); HEMOGLOBIN 9.6 g/dL (12.0-16.0); LYMPHOCYTES # (AUTO) 0.7 K/uL (2.5-16.5); LYMPHOCYTES % (AUTO) 9.2 % (20.5-51.1); MEAN CORPUSCULAR HEMOGLOBIN 33 pg (27-31); MEAN CORPUSCULAR HGB CONC 34 g/dL (33-37); MEAN CORPUSCULAR VOLUME 95.1 fL (80-94); MONOCYTES # (AUTO) 0.6 K/uL (0.8-1.0); MONOCYTES % (AUTO) 7.8 % (1.7-9.3); NEUTROPHILS # (AUTO) 5.8 K/uL (1.8-7.7); NEUTROPHILS % (AUTO) 79.5 % (42.2-75.2); PLATELET COUNT (AUTO) 164 K/uL (140-450); RED BLOOD CELL COUNT(AUTO) 2.94 MIL/uL (4.20-5.40); RED CELL DISTRIBUTION WIDTH 13.1 % (11.6-13.7); WHITE BLOOD COUNT (AUTO) 7.3 K/uL (4.8-10.8)
[2018-10-03 08:41] LABS: ANION GAP 10.9 (8-16); CARBON DIOXIDE 24.4 mmol/L (21-32); CHLORIDE 111 mmol/L (98-107); CREATININE 1.8 mg/dL (0.6-1.3); GLUCOSE 100 mg/dL (74-106); POTASSIUM 4.3 mmol/L (3.5-5.1); SODIUM SERUM 142 mmol/L (136-145); UREA NITROGEN, BLOOD 28 mg/dL (7-18)
[2018-10-03 08:46] LABS: MAGNESIUM 1.9 mg/dL (1.8-2.4); PHOSPHORUS 3.5 mg/dL (2.5-4.9)
[2018-10-03] MEDS ORDERED: SODIUM PHOSPHATE 118 ML ENEM RC PRN (08:46)
--- NOTE | 2018-10-03 09:30 | NUR ---
P.T. NOTES PATIENT REFUSED TO PARTICIPATE WITH P.T. SERVICES AT THIS TIME AND PREFERS TO SLEEP. EXPLAINED THE BENEFITS OF MOBILITY ACTIVITIES BUT STILL DOES NOT WANT TO PARTICIPATE. PLAN: WE'LL FOLLOW UP AGAIN TOMORROW.
[2018-10-03] MEDS: ALBUTEROL SULFATE/IPRATROPIU 3 ML SOL IH SCH ×3 (09:42→20:22)
[2018-10-03 12:00] VITALS: BP 147/49
--- NOTE | 2018-10-03 14:12 | NUR ---
PT WAS GIVEN IV ZOSYN NOW VIA PIGGYBACK, WILL MONITOR PT.
--- NOTE | 2018-10-03 14:30 | NUR ---
ECHO WAS DONE TO PT.
[2018-10-03] MEDS: NACL 0.9% 1,000 ML IV SCH (15:24)
[2018-10-03 16:00] VITALS: BP 146/53
--- NOTE | 2018-10-03 16:03 | NUR ---
Spoke with Emelyn romero of patient. She is okay for her mom to go to [facility] for continued physical therapy.
--- NOTE | 2018-10-03 16:19 | NUR ---
Clinicals faxed to [facility] .
--- NOTE | 2018-10-03 16:45 | NUR ---
PT WAS REPOSITIONED NOW AND CLEANED BY BREAKER OILER.
[2018-10-03] MEDS ORDERED: CALCIUM ACETATE 667 MG TAB PO SCH (17:00)
--- NOTE | 2018-10-03 19:15 | NUR ---
ENDORSED PT TO TEXTILE FINISHER NURSE FOR CONTINUITY OF CARE.
--- NOTE | 2018-10-03 19:15 | NUR ---
RECEIVED BEDSIDE REPORT FROM DAY SHIFT NURSE. PATIENT IS AWAKE, ALERT, AND COOPERATIVE. RESPIRATION EVEN UNLABORED ON ROOM AIR. SKIN IS WARM AND DRY. IV PATENT AND INTACT. DENIES PAIN. PLAN OF CARE WAS DISCUSSED. ALL SAFETY MEASURES IN PLACE. BED IS AT LOW POSITION. CALL LIGHT WITHIN REACH AND VERBALIZES ITS USE. WILL CONTINUE TO MONITOR
[2018-10-03 20:00] VITALS: BP 170/56
--- NOTE | 2018-10-03 20:00 | NUR ---
INITIAL ASSESSMENT DONE. VITALS WERE TAKEN. PATIENT IN STABLE CONDITION. WILL CONTINUE TO MONITOR.
--- NOTE | 2018-10-03 20:29 | NUR ---
RECEIVED PATIENT ON ROOM AIR, PULSE OX SAT 98%. SCHEDULED BREATHING TREATMENT ADMINISTERED. TOLERATED TX WELL WITHOUT ADVERSE SIDE EFFECTS. NO ACUTE RESPIRATORY DISTRESS NOTED AT THIS TIME. WILL CONTINUE TO MONITOR.
[2018-10-03] MEDS: ATORVASTATIN 20 MG TAB PO SCH (20:46)
[2018-10-03] MEDS: traZODone 50 MG TAB PO SCH (20:46)
--- NOTE | 2018-10-03 21:00 | NUR ---
ALL SCHEDULED MEDS WERE GIVEN PER ORDER. NO ASE NOTED. WILL CONTINUE TO MONITOR.
[2018-10-03] MEDS ORDERED: traZODone 50 MG TAB PO SCH (21:40)
--- NOTE | 2018-10-03 22:00 | NUR ---
PATIENT IN BED WATCHING TV RESPIRATION EVEN UNLABORED ON ROOM AIR. NO DISTRESS NOTED. WILL CONTINUE TO MONITOR.
--- NOTE | 2018-10-03 22:30 | NUR ---
RECD. FOR CONTINUITY OF CARE, RESTING IN BED AWAKE, A/OX3. RESPIRATION EVEN AND UNLABORED. IV OF NS AT 50 ML/HR INFUSING LEFT AC G20. WANTS TO BE ABLE TO SLEEP. WILL MEDICATE ORDERED. DENIES PAIN 0/10.
--- NOTE | 2018-10-03 22:30 | NUR ---
ENDORSED PATIENT TO NURSE NIKKY FOR CONTINUITY OF CARE. PATIENT IN STABLE CONDITION.
[2018-10-03] MEDS: MELATONIN 3 MG TAB PO PRN (22:49)
--- NOTE | 2018-10-03 22:49 | NUR ---
MEDICATED WITH MELATONIN 3 MG. PO ORDERED.
--- NOTE | 2018-10-03 23:50 | NUR ---
STILL AWAKE, BEDDINGS FIXED REQUESTED. REPOSITIONED IN BED FOR COMFORT.
[2018-10-04] VITALS: BP 156/58
--- NOTE | 2018-10-04 01:37 | NUR ---
STILL AWAKE, MEDICATED WITH DESYREL 25 MG. PO ORDERED.
--- NOTE | 2018-10-04 02:30 | NUR ---
SLEEPING COMFORTABLY IN BED.
[2018-10-04 04:00] VITALS: BP 152/56
--- NOTE | 2018-10-04 06:00 | NUR ---
ABLE TO SLEPT WELL. NO SOB NOTED DURING SHIFT. CONDITION REMAIN STABLE.
[2018-10-04] MEDS: PIPERACILLIN/TAZOBACTAM 2.25 GM in DEXTROSE 5% 50 ML IV SCH ×3 (06:10→22:46)
[2018-10-04 06:47] LABS: ANION GAP 14.4 (8-16); CARBON DIOXIDE 22.4 mmol/L (21-32); CHLORIDE 111 mmol/L (98-107); CREATININE 1.6 mg/dL (0.6-1.3); GLUCOSE 111 mg/dL (74-106); POTASSIUM 3.8 mmol/L (3.5-5.1); SODIUM SERUM 144 mmol/L (136-145); UREA NITROGEN, BLOOD 20 mg/dL (7-18)
[2018-10-04] MEDS: ALBUTEROL SULFATE/IPRATROPIU 3 ML SOL IH SCH ×3 (06:47→19:32)
--- NOTE | 2018-10-04 06:48 | NUR ---
PT REFUSED BREATHING TX AT THIS TIME X3. PT NOT SOB AND NOT IN RESPIRATORY DISTRESS. WILL CONTINUE TO MONITOR.
[2018-10-04 07:03] LABS: MAGNESIUM 1.7 mg/dL (1.8-2.4); PHOSPHORUS 3.5 mg/dL (2.5-4.9)
[2018-10-04 07:15] LABS: BASOPHILS % (AUTO) 0.5 % (0.0-2.0); EOSINOPHILS # (AUTO) 0.3 K/uL (0-0.4); EOSINOPHILS % (AUTO) 4.3 % (0.0-4.0); HEMATOCRIT 28.7 % (36-48); HEMOGLOBIN 9.8 g/dL (12.0-16.0); LYMPHOCYTES # (AUTO) 0.7 K/uL (2.5-16.5); LYMPHOCYTES % (AUTO) 10.9 % (20.5-51.1); MEAN CORPUSCULAR HEMOGLOBIN 32 pg (27-31); MEAN CORPUSCULAR HGB CONC 34 g/dL (33-37); MEAN CORPUSCULAR VOLUME 94.8 fL (80-94); MONOCYTES # (AUTO) 0.4 K/uL (0.8-1.0); MONOCYTES % (AUTO) 6.8 % (1.7-9.3); NEUTROPHILS # (AUTO) 4.8 K/uL (1.8-7.7); NEUTROPHILS % (AUTO) 77.5 % (42.2-75.2); PLATELET COUNT (AUTO) 176 K/uL (140-450); RED BLOOD CELL COUNT(AUTO) 3.03 MIL/uL (4.20-5.40); RED CELL DISTRIBUTION WIDTH 13.4 % (11.6-13.7); WHITE BLOOD COUNT (AUTO) 6.2 K/uL (4.8-10.8)
--- NOTE | 2018-10-04 07:19 | NUR ---
AWAKE IN BED, RESPIRATION EVEN AND UNLABORED. ENDORSED TO AM SHIFT NURSE FOR CONTINUITY OF CARE.
--- NOTE | 2018-10-04 07:20 | NUR ---
RECEIVED REPORT FROM CALL WORKER NURSE. PT AAOX3, NEEDS REORIENTATION. RESPIRATIONS EVEN AND UNLABORED ON RA. SKIN IS WARM TO TOUCH. ABD SOFT, ACTIVE BS. IV ON LT AC 20 GA RUNNING IVF PER ORDER. REVIEWED POC WITH PT, PT NEEDS REINFORCEMENT.
[2018-10-04 08:00] VITALS: BP 120/57
[2018-10-04] MEDS: TAMSULOSIN 0.4 MG CAP PO SCH (09:00)
[2018-10-04] MEDS: ALUMINUM HYD/MAG/SIMETHICONE 30 ML UDC PO SCH ×2 (09:00→21:53)
[2018-10-04] MEDS: POLYETHYLENE GLYCOL 17 GM/PKT PO SCH (09:00)
--- NOTE | 2018-10-04 09:30 | NUR ---
PT STATES 4/10 PAIN WHILE POINTING TO ABDOMEN, WILL MEDICATE.
[2018-10-04] MEDS: LORATADINE 10 MG TAB PO SCH (09:31)
[2018-10-04] MEDS: ASPIRIN 81 MG TAB.CHEW PO SCH (09:31)
[2018-10-04] MEDS: LACTOBACILLUS RHAMNOSUS GG 1 EACH CAP PO SCH (09:32)
[2018-10-04] MEDS: DOCUSATE SODIUM 100 MG GELCAP PO SCH ×2 (09:32→21:53)
[2018-10-04] MEDS: amLODIPine 5 MG TAB PO SCH (09:32)
[2018-10-04] MEDS: CARVEDILOL 12.5 MG TAB PO SCH ×2 (09:33→21:54)
--- NOTE | 2018-10-04 09:42 | NUR ---
PT REFUSED TAMSULOSIN AND MAALOX/MYLANTA, STATES "I DON'T NEED THAT". PT STATES SHE NO LONGER HAS PAIN.
--- NOTE | 2018-10-04 11:15 | NUR ---
Spoke to admitting at [facility] and patient will go tomorrow 10/05/18 to room 34-A and to call report at [phone].
[2018-10-04] MEDS: NACL 0.9% 1,000 ML IV SCH (11:24)
--- NOTE | 2018-10-04 12:00 | NUR ---
NOTED NON-PITTING EDEMA TO LT ARM IV, PT HAS NO C/O OF PAIN, FLUSHING WITH NO RESISTANCE. IV DISCONTINUED, CANNULA INTACT. WILL CONTINUE TO MONITOR ARM.
--- NOTE | 2018-10-04 12:20 | NUR ---
PT IS HAVING LUNCH AT THIS TIME. REFUSED IV INSERTION AT THIS TIME. EXPLAINED RISKS AND BENEFITS, PT SAID "YOU CAN DO IT LATER"
[2018-10-04] MEDS ORDERED: MAGNESIUM OXIDE 400 MG TAB PO SCH (13:15)
--- NOTE | 2018-10-04 14:21 | NUR ---
10/04/18 RD FOLLOW UP COMPLETED PLEASE REFER TO NUTRITION ASSESSMENT UNDER CARE ACTIVITY FOR ESTIMATED NUTRITIONAL NEEDS. 1. RECOMMEND REGULAR DIET TOLERATED 2. THRIVE GELATO WILL BE PROVIDED WITH LUNCH AND DINNER MEALS 3. PATIENT DECLINED ENSURE 4. RD WILL FOLLOW UP 3-5 DAYS, MODERATE RISK LILA GONZALES RD
[2018-10-04 16:00] VITALS: BP 152/53
--- NOTE | 2018-10-04 19:25 | NUR ---
ENDORSED PT TO SALES ROUTE DRIVER NURSE. PT HAS NO SIGNS OF DISTRESS AT THIS TIME.
[2018-10-04 20:00] VITALS: BP 168/48
--- NOTE | 2018-10-04 20:30 | NUR ---
SEEN PT AWAKE, ALERT AND ORIENTED W/ SLURRED SPEECH DUE TO STROKE. INITIAL ASSESSMENT DONE. PT HAS LEFT SIDE WEAKNESS. VITAL SIGNS CHECKED. PT'S DX=631/48. PT STATES "THAT'S OK". WILL MEDICATE ORDERED. PT DENIES ANY DISCOMFORT OR SHORTNESS OF BREATH. PT SAID, "I NEED TO BE CHANGE EVERY 2HRS BECAUSE I PEE A LOT." INFORMED PT TO CALL WHENEVER SHE NEEDS TO BE CHANGED. CALL LIGHT W/IN REACH. PT DENIES ANY OTHER NEEDS. PT REFUSED TO BE REPOSITIONED AND WANTS TO STAY ON HER BACK. EDUCATED ON REPOSITIONING BUT STILL REFUSED.
[2018-10-04] MEDS ORDERED: traZODone 50 MG TAB PO SCH (21:00)
--- NOTE | 2018-10-04 21:50 | NUR ---
SEEN PT AWAKE, WATCHING TV. PO MEDICATIONS GIVEN W/ TEACHINGS. PT VERBALIZED UNDERSTANDING. PT TOOK HER MEDICATIONS ONE BY ONE W/ SIPS OF WATER. PT TOLERATED MEDS WELL. PT ASKING FOR SLEEPING PILL AROUND 11PM. PT DENIES ANY OTHER NEEDS. CALL LIGHT W/IN REACH.
[2018-10-04] MEDS: ATORVASTATIN 20 MG TAB PO SCH (21:54)
--- NOTE | 2018-10-04 21:55 | NUR ---
PT REFUSED MAALOX AND SAID "I'VE HAD BOWEL MOVEMENT 8 TIMES", I DON'T NEED IT ANYMORE." EXPLAINED TO PT THAT SHE CAME IN W/ FECAL IMPACTION. PT SAID, " THAT WAS LAST TUES", "I'M ALREADY CLEARED."
--- NOTE | 2018-10-04 22:30 | NUR ---
PT CALLED AND WANTS TO BE CHANGED. ASSISTED RUY STARKEY TO RENDER PERINEAL CARE TO PATIENT. PT STILL REFUSED TO BE REPOSITIONED. WILL CONTINUE TO MONITOR. CALL LIGHT W/IN REACH.
[2018-10-04 22:45] VITALS: BP 160/58
[2018-10-04] MEDS: MELATONIN 3 MG TAB PO PRN (22:45)
--- NOTE | 2018-10-04 22:45 | NUR ---
PT STILL AWAKE WATCHING TV. IVPB ANTIBIOTIC GIVEN AND SLEEPING PILL WELL. TEACHINGS PROVIDED. PT KEPT COMFORTABLE. WILL CONTINUE TO MONITOR.
--- NOTE | 2018-10-05 01:30 | NUR ---
PT CALLED AND WANTS TO BE CHANGED. RUY STARKEY WENT TO SEE PT AND PERINEAL CARE RENDERED. IVF INFUSING WELL. CALL LIGHT W/IN REACH. PT STILL DOESN'T WANT TO BE REPOSITIONED.
--- NOTE | 2018-10-05 02:35 | NUR ---
PT CALLED AND WANTS TO BE CHANGED. MERON,PREPLEATER CAME AND PERINEAL CARE RENDERED. PT STILL REFUSED TO REPOSITION HERSELF ON THE SIDE. PT STATES "I CAN'T SLEEP ON MY SIDE." EDUCATION PROVIDED ON PRESSURE SORE PREVENTION. PT SAID "I UNDERSTAND." PT KEPT COMFORTABLE.
[2018-10-05 05:30] VITALS: BP 170/60
--- NOTE | 2018-10-05 05:30 | NUR ---
SEEN PT ASLEEP. AWAKEN PT TO CHECK VITAL SIGNS BUT SAID "I DON'T WANT IT CHECKED, I WANT TO GO TO SLEEP." EXPLAINED TO PT THAT ITS IMPORTANT TO CHECK HER BP BECAUSE IT WAS HIGH LAST NIGHT. PT UNDERSTOOD INSTRUCTION. BP-170/60. PT DENIES ANY DISCOMFORT. WILL NOTIFY MD. PT DOESN'T WANT TO BE REPOSITION.
--- NOTE | 2018-10-05 05:46 | NUR ---
NOTIFIED MD REGARDING PT'S BP. HE SAID "THAT'S FINE." NO NEW ORDERS RECEIVED.
--- NOTE | 2018-10-05 06:45 | NUR ---
PT CALLED AND WANTS TO BE CHANGED. PERICARE RENDER. PT WENT BACK TO SLEEP.
[2018-10-05] MEDS: PIPERACILLIN/TAZOBACTAM 2.25 GM in DEXTROSE 5% 50 ML IV SCH (06:55)
[2018-10-05] MEDS: ALBUTEROL SULFATE/IPRATROPIU 3 ML SOL IH SCH ×2 (07:02→13:00)
--- NOTE | 2018-10-05 07:05 | NUR ---
AWAKEN PT. IV FLAGYL GIVEN ORDERED. PERICARE RENDERED. BREATHING TREATMENT IS ON GOING. WILL ENDORSE TO DAYSHIFT NURSE.
--- NOTE | 2018-10-05 07:15 | NUR ---
Pt received from night nurse Lia RN. Pt AAOx4 during bedside report. Pt shows no acute signs of distress at this time. Pt has 24G to R forearm with NS @ 50ml/hr. Will continue to round and assess for changes in condition.
[2018-10-05 08:00] VITALS: BP 151/61
[2018-10-05] MEDS ORDERED: AMOX-999 PO (08:12)
[2018-10-05] MEDS ORDERED: TRAZ-344 PO (08:13)
[2018-10-05 08:46] LABS: BASOPHILS % (AUTO) 0.5 % (0.0-2.0); EOSINOPHILS # (AUTO) 0.3 K/uL (0-0.4); EOSINOPHILS % (AUTO) 4.3 % (0.0-4.0); HEMATOCRIT 28.9 % (36-48); HEMOGLOBIN 9.8 g/dL (12.0-16.0); LYMPHOCYTES % (AUTO) 15.3 % (20.5-51.1); MEAN CORPUSCULAR HEMOGLOBIN 32 pg (27-31); MEAN CORPUSCULAR HGB CONC 34 g/dL (33-37); MEAN CORPUSCULAR VOLUME 94.4 fL (80-94); MONOCYTES # (AUTO) 0.5 K/uL (0.8-1.0); MONOCYTES % (AUTO) 7.7 % (1.7-9.3); NEUTROPHILS # (AUTO) 4.5 K/uL (1.8-7.7); NEUTROPHILS % (AUTO) 72.2 % (42.2-75.2); PLATELET COUNT (AUTO) 184 K/uL (140-450); RED BLOOD CELL COUNT(AUTO) 3.06 MIL/uL (4.20-5.40); RED CELL DISTRIBUTION WIDTH 13.2 % (11.6-13.7); WHITE BLOOD COUNT (AUTO) 6.2 K/uL (4.8-10.8)
[2018-10-05 08:59] LABS: MAGNESIUM 1.9 mg/dL (1.8-2.4); PHOSPHORUS 3.2 mg/dL (2.5-4.9)
[2018-10-05] MEDS: ALUMINUM HYD/MAG/SIMETHICONE 30 ML UDC PO SCH ×2 (09:00→09:02)
[2018-10-05] MEDS: LACTOBACILLUS RHAMNOSUS GG 1 EACH CAP PO SCH (09:00)
[2018-10-05] MEDS: NACL 0.9% 1,000 ML IV SCH (09:00)
[2018-10-05] MEDS: TAMSULOSIN 0.4 MG CAP PO SCH (09:00)
[2018-10-05] MEDS: DOCUSATE SODIUM 100 MG GELCAP PO SCH (09:01)
[2018-10-05] MEDS: amLODIPine 5 MG TAB PO SCH (09:01)
[2018-10-05] MEDS: LORATADINE 10 MG TAB PO SCH (09:01)
[2018-10-05] MEDS: CARVEDILOL 12.5 MG TAB PO SCH (09:01)
[2018-10-05] MEDS: ASPIRIN 81 MG TAB.CHEW PO SCH (09:01)
--- NOTE | 2018-10-05 09:01 | NUR ---
Morning medications administered. Pt tolerated medications well. Pt was able to swallow all medications with no problem. Pt takes one pill at a time with water and knows that she must sit up during med administration. Pt received teaching on all medication prior to administration. Pt refused Maalox/Mylanta despite teaching. Will continue to monitor pt for changes in condition.
[2018-10-05] MEDS: POLYETHYLENE GLYCOL 17 GM/PKT PO SCH (09:02)
[2018-10-05 09:41] LABS: ANION GAP 13.1 (8-16); CARBON DIOXIDE 23.9 mmol/L (21-32); CHLORIDE 112 mmol/L (98-107); CREATININE 1.6 mg/dL (0.6-1.3); GLUCOSE 119 mg/dL (74-106); SODIUM SERUM 145 mmol/L (136-145); UREA NITROGEN, BLOOD 18 mg/dL (7-18)
--- NOTE | 2018-10-05 10:36 | NUR ---
PER DINA AT [facility], ROOM 45A CONFIRMED AFTER 12NOOM, [facility] ARRANGED FOR 3PM FURNITURE PACKER PER MARIE.
--- NOTE | 2018-10-05 10:45 | NUR ---
Pt's daughter, Emelyn Welsh, was called to inform that pt will be transferred to [facility] [place] around 1500. Emelyn Welsh stated that she would come in to visit her mother around 1430, prior to transfer, and she will be bringing the pt a change of clothes.
--- NOTE | 2018-10-05 13:05 | NUR ---
PT STATES SHE DOES NOT WANT BREATHING TX AT THIS TIME AND WANTS TO EAT. WILL ATTEMPT HHN ADMINISTRATION AT A LATER TIME. PT NOT SOB.
--- NOTE | 2018-10-05 13:15 | NUR ---
Called [facility] to give report prior to transfer. SBAR given to Waldo. Pt will continue care at [facility] under Dr. Lackey. Pt is to recieve PT and PO antibiotics at [facility].
--- NOTE | 2018-10-05 14:40 | NUR ---
Pt received discharge instructions. Daughter at bedside and participated in discharge. Pt knows she will be transferred to [facility] and be followed by Dr. Lackey. Pt will recieve PO antibiotics and PT during her stay at [facility]. Pt is AAOx4, skin intact, and not presenting with signs of acute distress. IV to R forearm was discontinued. IV catheter intact. Wristband left on to allow for proper patient identification at [facility].
--- NOTE | 2018-10-05 15:47 | NUR ---
Called [facility] d/t pick-up delay. Per home delivery driver, they will arrive in 5-10min to [facility]. Pt & daughter Emelyn notified, verbalized understanding. Pt resting in bed, no signs of distress.
--- NOTE | 2018-10-05 16:00 | NUR ---
Pt discharged to [facility] via [facility]. Pt was taken off the unit on a gurney. Pt AAOx4 and stable upon admit. Skin intact. Pt daughter, Emelyn, was at bedside and will follow transport to [facility]. All pt belongings with her and daughter. IV removed prior to leaving the floor, catheter intact.
== END 2018-10-05 16:00 | DRG 871 ==
LOC: MED 21:05 → MMU 23:14
PROVIDERS: ADMIT General Practice; ATTEND General Practice
DX: A41.9 Sepsis, unspecified organism (principal); J69.0 Pneumonitis due to inhalation of food and vomit; E43 Unspecified severe protein-calorie malnutrition; I50.43 Acute on chronic combined systolic (congestive) and diastolic (congestive) heart failure; N13.30 Unspecified hydronephrosis; E78.5 Hyperlipidemia, unspecified; I25.10 Atherosclerotic heart disease of native coronary artery without angina pectoris; K52.9 Noninfective gastroenteritis and colitis, unspecified; K56.41 Fecal impaction; K21.9 Gastro-esophageal reflux disease without esophagitis; E11.9 Type 2 diabetes mellitus without complications; E86.0 Dehydration; D51.0 Vitamin B12 deficiency anemia due to intrinsic factor deficiency; M19.90 Unspecified osteoarthritis, unspecified site; I11.0 Hypertensive heart disease with heart failure; E83.42 Hypomagnesemia; R33.9 Retention of urine, unspecified; G47.00 Insomnia, unspecified; E83.39 Other disorders of phosphorus metabolism; E87.8 Other disorders of electrolyte and fluid balance, not elsewhere classified; Z68.22 Body mass index [BMI] 22.0-22.9, adult; Z79.82 Long term (current) use of aspirin; Z86.73 Personal history of transient ischemic attack (TIA), and cerebral infarction without residual deficits; Z88.2 Allergy status to sulfonamides
CPT/HCPCS: 36415; 71045; 74018; 80048; 80053; 81003; 82150; 83036; 83605; 83690; 83735; 83880; 84100; 84439; 84443; 84484; 85025; 85610; 85730; 87040; 87070; 87081; 87086; 87205; 89220; 92610; 93005; 94640; 96361; 96365; 97110; 97161-GP; 97530; 99285; J2543; J3475; J7030; J7060; J7620; Q0092

== ENCOUNTER 2018-10-29 20:10 | Inpatient (IN) | payer OTHER, BC ==
[~2018-10-29] VITALS: Ht 170.2 cm; Wt 62.6 kg
[~2018-10-29 20:10] MED LIST changes: -ACET-2619 PO; +ALUM355S50 PO; -ASPI-1718 PO; +BISA-213 RC; -CEFT1SOL1 IV; -CLON0.1T42 PO; -DOCU250S72 PO; -FAMO-90 PO; -FENO145T PO; -FERR-252 PO; -GLIP5TAB4 PO; -GLUC-805 MC; -LACT10CA1 PO; -LIP80 PO; -LISI30TA6 PO; +LORA10TA19 PO; +MIRABULK PO; +NA P135N RC; +TRAZ-344 PO; -VITA1TAB44 PO; +ZOS2.25I IV; +[UNRECOGNIZED DRUG - CODE] IV; -[UNRECOGNIZED DRUG - CODE] RC
--- NOTE | 2018-10-29 20:50 | NUR ---
TRANSFERRED FROM [facility] FOR CONTINUITY OF CARE. Pt awake, alert, and orientedx3, 78 y/o ,Female, Cooperative, a little anxious about her condition. Initial assessment done. Pt has diaz catheter draining dark red urine. Pt had smear of BM. Perineal care rendered. Vital signs checked. Pt oriented to call light, bed, phone,television, bathroom, smoking policy, visiting hours, procedures, ID bracelet on. Belongings list checked. MRSA swab collected. Pt repositioned for comfort. Will continue to monitor.
[2018-10-29 20:55] VITALS: BP 123/46
--- NOTE | 2018-10-29 21:10 | NUR ---
PT TOLD THAT SHE WILL WEAR THE HOSPITAL SOCKS (YELLOW SOCKS). PT REFUSED AND SAID, "I DON'T LIKE THAT SOCKS, ITS NOT COMFORTABLE." EXPLAINED THE NEED TO WEAR IT BUT STILL REFUSED. WILL TRY AGAIN LATER.
--- NOTE | 2018-10-29 22:00 | NUR ---
SPOKE TO RESIDENT REGARDING ORDER FOR 3 WAY MAYBERRY BLADDER IRRIGATION. INFORMED HER PT HAS [address] MAYBERRY AND THEY'VE BEEN DOING MANUAL IRRIGATION Q4HRS. SHE SAID "JUST KEEP IT AND DO MANUAL IRRIGATION Q4HR FOR NOW."
--- NOTE | 2018-10-29 23:00 | NUR ---
CUTTING MACHINE FIXER AT BEDSIDE. BLADDER IRRIGATED W/ 60ML STERILE WATER. NO CLOTS SEEN. PT HAD A LITTLE BIT OF DISCOMFORT WHEN DURING PROCEDURE. PT KEPT COMFORTABLE.
[2018-10-29 23:19] LABS: BASOPHILS % (AUTO) 0.3 % (0.0-2.0); EOSINOPHILS # (AUTO) 0.3 K/uL (0-0.4); EOSINOPHILS % (AUTO) 2.9 % (0.0-4.0); LYMPHOCYTES # (AUTO) 0.7 K/uL (2.5-16.5); MEAN CORPUSCULAR HEMOGLOBIN 30 pg (27-31); MEAN CORPUSCULAR HGB CONC 34 g/dL (33-37); MEAN CORPUSCULAR VOLUME 89.3 fL (80-94); MONOCYTES # (AUTO) 0.8 K/uL (0.8-1.0); MONOCYTES % (AUTO) 6.9 % (1.7-9.3); NEUTROPHILS # (AUTO) 9.2 K/uL (1.8-7.7); NEUTROPHILS % (AUTO) 83.4 % (42.2-75.2); PLATELET COUNT (AUTO) 335 K/uL (140-450); RED BLOOD CELL COUNT(AUTO) 2.58 MIL/uL (4.20-5.40); RED CELL DISTRIBUTION WIDTH 15.1 % (11.6-13.7)
[2018-10-29] MEDS ORDERED: TRAZ-343 PO (23:32)
[2018-10-29] MEDS ORDERED: HYDR100T79 PO (23:32)
[2018-10-29] MEDS ORDERED: SODI100076 PO (23:32)
[2018-10-29] MEDS ORDERED: ACET-2619 PO (23:32)
[2018-10-29] MEDS ORDERED: LORA10TA19 PO (23:32)
[2018-10-29] MEDS ORDERED: HYDR-5122 PO (23:32)
[2018-10-29] MEDS ORDERED: CARV25TA PO (23:32)
[2018-10-29] MEDS ORDERED: ASPI-1718 PO (23:32)
[2018-10-29] MEDS ORDERED: HYDR100T79 IVP (23:32)
[2018-10-29 23:38] LABS: ALBUMIN 1.6 g/dL (3.4-5.0); ANION GAP 16.9 (8-16); ASPARTATE AMINOTRANSFERASE 14 U/L (15-37); CARBON DIOXIDE 14.4 mmol/L (21-32); CHLORIDE 117 mmol/L (98-107); CREATININE 1.8 mg/dL (0.6-1.3); GLUCOSE 113 mg/dL (74-106); MAGNESIUM 1.5 mg/dL (1.8-2.4); PHOSPHORUS 3.5 mg/dL (2.5-4.9); POTASSIUM 4.3 mmol/L (3.5-5.1); SODIUM SERUM 144 mmol/L (136-145); TOTAL BILIRUBIN 0.2 mg/dL (0.0-1.0); UREA NITROGEN, BLOOD 36 mg/dL (7-18)
[2018-10-29 23:51] LABS: PROTHROMBIN TIME 9.8 secs (10.8-13.4)
[2018-10-30 00:38] LABS: HEMOGLOBIN 7.8 g/dL (12.0-16.0); LYMPHOCYTES % (AUTO) 6.5 % (20.5-51.1)
[2018-10-30] MEDS ORDERED: ALUMINUM HYD/MAG/SIMETHICONE 30 ML UDC PO PRN (00:45)
[2018-10-30] MEDS ORDERED: DOCUSATE SODIUM 100 MG GELCAP PO PRN (00:45)
[2018-10-30] MEDS ORDERED: ONDANSETRON 4 MG/2 ML VIAL IM/IVP PRN (00:45)
[2018-10-30] MEDS ORDERED: ACETAMINOPHEN 325 MG TAB PO PRN (00:45)
[2018-10-30] MEDS ORDERED: HYDROcodone/APAP 7.5/325 MG 1 TAB PO PRN (00:45)
[2018-10-30] MEDS ORDERED: SODIUM PHOSPHATE PEDIATRIC 67.5 ML ENEM RC PRN (00:45)
[2018-10-30] MEDS ORDERED: MAGNESIUM HYDROXIDE 2400 MG/30 ML UDC PO PRN (00:45)
[2018-10-30] MEDS ORDERED: SODIUM PHOSPHATE 118 ML ENEM RC PRN (00:45)
[2018-10-30] MEDS ORDERED: BISACODYL 10 MG SUPP RC PRN (01:10)
[2018-10-30 01:17] LABS: CHOL/HDL RATIO 5.3 (1-4.5); FREE T4 (FREE THYROXINE) 1.05 ng/dL (0.76-1.46); THYROID STIMULATING HORMONE 0.43 uIU/mL (0.34-3.74)
[2018-10-30] MEDS ORDERED: MAG SULF 2000 MG/WATER PREMIX 50 ML IV ONE (02:05)
[2018-10-30] MEDS: NACL 0.9% 1,000 ML IV SCH (02:21)
--- NOTE | 2018-10-30 02:30 | NUR ---
SEEN PT ASLEEP BUT EASILY AROUSABLE. IVF STARTED PLUS MG RIDER ORDERED. BLADDER IRRIGATION DONE RIGHT AFTER. PT REFUSED TO BE REPOSITIONED. INFORMED ABOUT THE NEED FOR IT BUT STILL REFUSED. CALL LIGHT W/IN REACH.
[2018-10-30 04:40] VITALS: BP 165/48
--- NOTE | 2018-10-30 04:40 | NUR ---
SEEN PT ASLEEP BUT EASILY AROUSABLE. VITAL SIGNS CHECKED. PT DENIES ANY PAIN. PT REPOSITIONED FOR COMFORT. PT REFUSED AT FIRST BUT REINFORCED. WILL CONTINUE TO MONITOR. CALL LIGHT W/IN REACH.
[2018-10-30] MEDS ORDERED: cefTRIAXone 1,000 MG VIAL ONE (06:28)
--- NOTE | 2018-10-30 06:35 | NUR ---
PT SLEEPING BUT EASILY AROUSABLE. IV ANTIBIOTIC GIVEN ORDERED W/ TEACHING. PT NOT IN ANY DISTRESS OR DISCOMFORT. CALL LIGHT W/IN REACH. IVF INFUSING WELL.
--- NOTE | 2018-10-30 06:37 | NUR ---
BLADDER IRRIGATION DONE. NO CLOTS NOTED. WILL CONTINUE TO MONITOR.
[2018-10-30 06:49] LABS: HEMATOCRIT 21.6 % (36-48); HEMOGLOBIN 7.4 g/dL (12.0-16.0); MEAN CORPUSCULAR HEMOGLOBIN 31 pg (27-31); MEAN CORPUSCULAR HGB CONC 34 g/dL (33-37); MEAN CORPUSCULAR VOLUME 89.3 fL (80-94); PLATELET COUNT (AUTO) 326 K/uL (140-450); RED BLOOD CELL COUNT(AUTO) 2.41 MIL/uL (4.20-5.40); RED CELL DISTRIBUTION WIDTH 15.1 % (11.6-13.7); WHITE BLOOD COUNT (AUTO) 9.8 K/uL (4.8-10.8)
--- NOTE | 2018-10-30 06:58 | NUR ---
BLADDER IRRIGATION DONE. PT'S URINE TURNING PINK NOW. PT DENIES ANY DISCOMFORT. WILL ENDORSE TO DAYSHIFT NURSE.
[2018-10-30 07:04] LABS: PROTHROMBIN TIME 9.5 secs (10.8-13.4)
--- NOTE | 2018-10-30 07:25 | NUR ---
RECEIVED PT FROM DRAFTING TEACHER NURSECARLOZ, PT IS ASLEEP AND RESPIRATION IS EVEN, IV LINE ON THE LEFT FA G.22 WITH NS INFUSING AT 20ML/HR, SIDE RAILS ARE UP AND CALL LIGHT WITHIN REACH, MAYBERRY CATHETER IN PLACE WITH 2 PORTS, NO SIGN OF DISTRESS NOTED AND WILL MONITOR PT.
[2018-10-30 08:11] LABS: MAGNESIUM 2.1 mg/dL (1.8-2.4); PHOSPHORUS 3.4 mg/dL (2.5-4.9)
[2018-10-30 08:15] LABS: LYMPHOCYTES % (MANUAL) 12 % (20-46)
[2018-10-30 08:16] LABS: EOSINOPHILS % (MANUAL) 3 % (0-4); MONOCYTES % (MANUAL) 7 % (5-12)
--- NOTE | 2018-10-30 08:20 | NUR ---
PATIENT HAS BEEN SCREENED AND CATEGORIZED HIGH NUTRITION RISK. PATIENT WILL BE SEEN WITHIN 1-2 DAYS OF ADMISSION. 10/30/18-10/31/[address]
[2018-10-30 08:23] LABS: ANION GAP 17.4 (8-16); CARBON DIOXIDE 13.8 mmol/L (21-32); CHLORIDE 118 mmol/L (98-107); CREATININE 1.7 mg/dL (0.6-1.3); GLUCOSE 104 mg/dL (74-106); POTASSIUM 4.2 mmol/L (3.5-5.1); SODIUM SERUM 145 mmol/L (136-145); UREA NITROGEN, BLOOD 35 mg/dL (7-18)
[2018-10-30] MEDS: ASPIRIN 81 MG TAB.CHEW PO SCH (10:27)
[2018-10-30] MEDS: LORATADINE 10 MG TAB PO SCH (10:28)
[2018-10-30] MEDS: CARVEDILOL 12.5 MG TAB PO SCH ×2 (10:28→20:51)
[2018-10-30] MEDS: CHOLECALCIFEROL 1,000 IU TAB PO SCH (10:28)
[2018-10-30] MEDS: hydrALAZINE 25 MG TAB PO SCH ×4 (10:29→20:50)
[2018-10-30] MEDS: LACTOBACILLUS RHAMNOSUS GG 1 EACH CAP PO SCH (10:30)
[2018-10-30] MEDS: POLYETHYLENE GLYCOL 17 GM/PKT PO SCH (10:30)
--- NOTE | 2018-10-30 10:30 | NUR ---
PT IS AWAKE AND ORAL MEDICATIONS WERE GIVEN WITH PUDDING, PT TOLERATED IT. WILL MONITOR PT.
--- NOTE | 2018-10-30 13:18 | NUR ---
BP MEDICATION WAS HELD DUE TO LOW PARAMETER, WILL MONITOR PATIENT.
--- NOTE | 2018-10-30 14:59 | NUR ---
10/30/18 RD INITIAL ASSESSMENT COMPLETED PLEASE REFER TO NUTRITION ASSESSMENT UNDER CARE ACTIVITY FOR ESTIMATED NUTRITIONAL NEEDS. 1. CONTINUE RENAL DIET WITH RECOMMENDED FOOD TEXTURES AND LIQUID CONSISTENCY PER SPEECH THERAPIST 2. RECOMMEND NEPRO BID 3. ENCOURAGE INCREASING PO INTAKE 4. RD TO FOLLOW-UP 2-3 DAYS, HIGH RISK LILA GONZALES, [place]
[2018-10-30 16:00] VITALS: BP 158/47
--- NOTE | 2018-10-30 17:49 | NUR ---
PT IS AWAKE AND DAUGHTER ON THE BEDSIDE, ORAL MEDICATION WAS GIVEN TO PT AND PT TOLERATED IT. WILL MONITOR PT.
[2018-10-30] MEDS ORDERED: MEPERIDINE 25 MG/ML SYR IM ONE (19:20)
--- NOTE | 2018-10-30 19:25 | NUR ---
ENDORSED PT TO SALES AND MARKETING INTERN NURSEJUDI FOR CONTINUITY OF CARE
--- NOTE | 2018-10-30 19:35 | NUR ---
RECEIVED PT FROM SHARON RN PT AAOX2 DELAYED SPEECH , BUT VERBALIZED NEEDED, IV ON LEFT ARM INFUSING WELL ON DOUBLE LUMEN MAYBERRY CATH BLADDER IRRIGATION Q4H DARK RED URINE , PT REPOSITIONED , RELATIVE AT BED SIDE INITIAL ASSESSMENT DONE.
--- NOTE | 2018-10-30 19:39 | NUR ---
* ST NOTE * Pt seen at bedside w/daughter and nsg Korina & Arpita present. Pt alert, cooperative and engaged throughout session, reporting no c/o pain at this time. Bedside dysphagia and oral mechanism exams completed. See evaluation report for further details. Pt tolerating 5/5 alternating PO trials of m/s chicken as part of dinner meal as well as 4/4 alternating pO trials of thin liquid juice via a straw, all w/o s/s of aspiration or choking. Pt, daughter, and nsg education completed re: aspiration precautions and safe swallow compensatory strategies pt and caregivers could utilize to aid pt w/swallow function, w/pt and caregivers/daughter and nsg verbalizing understanding and agreement w/clinician's recommendations. Clinician inquiring if pt would like to attempt therapeutic feeding trials w/regular solids for a potential diet upgrade, w/pt refusing but requesting the following food preferences: no gravy, no peas, no yogurt, but add yellow corn to L & D, and add milk TID w/meals, w/clinician stating she will report pt's requests to FNS/Dietary. It is thus recommended pt remain on current PO diet consistency of mechanical soft textures w/thin liquids for all meals, w/aspiration precautions in place, w/pt, daughter & nsg agreeable. No further ST follow up recommended at this time. Pt, caregiver/daughter and caregiver/Nsg Korina & Arpita education completed re: results of evaluation; benefits of abiding by aspiration precautions and recommended Po diet consistency; and prognosis for improvement; with pt, caregiver/Daughter, & Nsg Randy verbalizing understanding and agreement w/clinician's recommendations. Recommend: - CONTINUE PO DIET CONSISTENCY OF MECHANICAL SOFT TEXTURES W/THIN LIQUIDS for all meals - WHOLE PO MEDICATION ADMINISTRATION IN PUREE TEXTURES, as by pt request - MAINTAIN STRICT ASPIRATION PRECAUTIONS DURING PT'S PO INTAKE - Pt can self-feed, but requires setup assistance; Pt's family may also assist w/feeding - FNS/NUTRITION--Pt requesting the following preferences please: NO GRAVY; NO PEAS; NO YOGURT; ADD YELLOW CORN TO LUNCH & DINNER; ADD MILK TID W/ALL MEALS. Thank you. - REMIND/CUE/ASSIST PT IN SITTING UP AT 80-90 DEGREE ANGLE DURING PO INTAKE; EATING/DRINKING SLOWLY; ALTERNATING BTWN SOLIDS & LIQUIDS; AND TAKING SMALL BITES/SIPS No further ST follow up recommended at this time as pt is now at PLOF/baseline for PO diet consistency. NOMS Level 2
[2018-10-30 20:00] VITALS: BP 159/49
[2018-10-30] MEDS ORDERED: traZODone 50 MG TAB PO PRN (21:00)
[2018-10-30] MEDS ORDERED: MEPERIDINE 25 MG/ML SYR ONE (21:36)
--- NOTE | 2018-10-30 22:00 | NUR ---
AFTER PAIN MEDIC GIVEN PT SLEEPING WELL NOT SIGNS OF PAIN NOTED
--- NOTE | 2018-10-31 | NUR ---
ON BLADDER IIRIGATION DARK RED NOT DISTRESS NOTED REPOSITIONED NOT SIGNS OF PAIN NOTED
--- NOTE | 2018-10-31 03:00 | NUR ---
PT ON BLADDER IRRIGATION STILL DARK RED DENIES ANY PAIN, NOT FEVER DENIES ANY PAIN REPOSITIONED Q2H
[2018-10-31] MEDS: NACL 0.9% 1,000 ML IV SCH (04:22)
--- NOTE | 2018-10-31 05:00 | NUR ---
SPONGE BATH GIVEN LINEN CHANGED NOT DISTRESS NOTED REPOSISTIONED Q2H, DENIES ANY PAIN
[2018-10-31 06:07] LABS: T4 (THYROXINE) 6.4 ug/dL (4.5-12.0)
--- NOTE | 2018-10-31 06:27 | NUR ---
PT MAYBERRY CATH DOUBLE LUMEN GETTING MORE CLEAR URINE AFTER BLADDER IRRIGATION, DENIES ANY PAIN , PT WILL BE ENDORSES TO DAY SHIFT NURDE FOR CONTINUE OF CARE
--- NOTE | 2018-10-31 07:10 | NUR ---
RECEIVED REPORT FROM DEGREASING SOLUTION RECLAIMER NURSEJUDI, PATIENT IS AWAKE, MAYBERRY CATHETER IN PLACE, L FA IV 20G, CALL LIGHT WITHIN REACH., SIDE RAILS UP, PATIENT DENIES PAIN, WILL CONTINUE TO MONITOR.
[2018-10-31 08:00] VITALS: BP 166/51
[2018-10-31] MEDS ORDERED: ROC2I IJ (08:10)
[2018-10-31] MEDS: POLYETHYLENE GLYCOL 17 GM/PKT PO SCH (08:30)
--- NOTE | 2018-10-31 08:30 | NUR ---
ADMINISTERED PATIENT MEDICATIONS, TOLERATED WELL, NO SIGNS OF DISTRESS, IRRIGATED MAYBERRY CATHETER, URINE IS LIGHT RED, WILL CONTINUE TO MONITOR
[2018-10-31] MEDS: hydrALAZINE 25 MG TAB PO SCH ×2 (08:31→12:34)
[2018-10-31] MEDS: CHOLECALCIFEROL 1,000 IU TAB PO SCH (08:31)
[2018-10-31] MEDS: ASPIRIN 81 MG TAB.CHEW PO SCH (08:32)
[2018-10-31] MEDS: LORATADINE 10 MG TAB PO SCH (08:32)
[2018-10-31] MEDS: LACTOBACILLUS RHAMNOSUS GG 1 EACH CAP PO SCH (08:32)
[2018-10-31] MEDS: CARVEDILOL 12.5 MG TAB PO SCH (08:32)
--- NOTE | 2018-10-31 09:50 | NUR ---
CONTACTED [facility] AT [phone], ABLE TO SPEAK TO BRYCE. SHE STATED ELLEN IS IN THE MEETING RIGHT NOW AND WILL HAVE HER CALL ME BACK SOON SHE IS BACK. SHE ALSO STATED THAT SHE COULD NOT PROVIDE ME WITH A ROOM NUMBER AT THIS TIME BECAUSE THE PATIENT IS NOT ON A BED HOLD, BUT WILL HAVE ELLEN CALL ME BACK.
--- NOTE | 2018-10-31 10:37 | NUR ---
[place] [facility] [place] ROOM 251[place]
--- NOTE | 2018-10-31 11:56 | NUR ---
ARRANGED TRANSPORT WITH [facility] ,PRACTICE CONSULTANT TIME 1600 PER ELISSA WILL PAY THE TRANSPORT.
--- NOTE | 2018-10-31 12:26 | NUR ---
CALLED THE PT'S DAUGHTER, FLAVIO MACE AT [phone] AND INFORMED THAT PT WILL BE TRANSFERRED TO [facility] TODAY AND IT SYSTEMS ENGINEER TIME WILL BE AT 1600.
--- NOTE | 2018-10-31 12:30 | NUR ---
IRRIGATED MAYBERRY CATHETER, PATIENT TOLERATED WELL, WILL CONTINUE TO MONITOR
--- NOTE | 2018-10-31 12:30 | NUR ---
CALLED [facility] AT [phone], AND GAVE REPORT TO PARRIS BERGERON REGARDING THE PT, THAT PT WILL BE PLACE IN [address], UNDER DR. GODOY, FOR CONTINUATION OF ROCEPHIN IV FOR TWO MORE DAYS AN BLADDER IRRIGATION Q4H UNTIL THE FOLLOW-UP WITH UROLOGIST, PARRIS BERGERON VERBALIZED UNDERSTANDING.
[2018-10-31 12:31] VITALS: BP 132/55
[2018-10-31] MEDS ORDERED: SODIUM BICARBONATE 650 MG TAB PO SCH (13:00)
--- NOTE | 2018-10-31 15:50 | NUR ---
PATIENT IS SLEEPING, CALL LIGHT WITHIN REACH, BED IN LOW POSITION, SIDE RAILS UP, NO SIGNS OF DISTRESS, WILL CONTINUE TO MONITOR.
--- NOTE | 2018-10-31 16:45 | NUR ---
DISCHARGED PT TO [facility] ACCOMPANIED BY [facility] TRANSPORT PERSONNEL, IV LINE INTACT, ARM BANDS REMOVED, DISCHARGED INSTRUCTIONS GIVEN TO PT AND VERBALIZED UNDERSTANDING. PT IS STABLE AT THIS TIME.
[2018-11-05] MEDS ORDERED: CYANOCOBALAMIN 1000 MCG/ML VIAL IM SCH (09:00)
== END 2018-10-31 16:45 | DRG 693 ==
LOC: MTU 20:10
PROVIDERS: ADMIT General Practice; ATTEND General Practice
DX: N13.30 Unspecified hydronephrosis (principal); J69.0 Pneumonitis due to inhalation of food and vomit; E43 Unspecified severe protein-calorie malnutrition; J98.11 Atelectasis; N17.0 Acute kidney failure with tubular necrosis; R33.9 Retention of urine, unspecified; Z68.21 Body mass index [BMI] 21.0-21.9, adult; M19.90 Unspecified osteoarthritis, unspecified site; E87.8 Other disorders of electrolyte and fluid balance, not elsewhere classified; I10 Essential (primary) hypertension; G47.00 Insomnia, unspecified; J30.2 Other seasonal allergic rhinitis; Z87.891 Personal history of nicotine dependence; Z86.73 Personal history of transient ischemic attack (TIA), and cerebral infarction without residual deficits
CPT/HCPCS: 36415; 71045; 76770; 80048; 80053; 82150; 83036; 83690; 83735; 83880; 84100; 84436; 84439; 84443; 85025; 85610; 85730; 87081; 92610; 93005; J0696; J2175; J3475; J7030; J7060; Q0092